=== PATIENT | female | born 1990 | race Caucasian/White ===

== ENCOUNTER → 2016-05-02 | Outpatient (CLI) | payer BC | END | disposition home or self-care (01) | LOC: C.LAB 09:16 | PROVIDERS: ATTEND Obstetrics & Gynecology | DX: N97.9 Female infertility, unspecified (principal) ==

== ENCOUNTER → 2016-07-08 | Outpatient (CLI) | payer BC ==
[2016-07-08 10:20] LABS: MEAN CELL VOLUME 89.3 fL (80-100); MEAN CORPUSCULAR HGB CONC 34.8 g/dl (32-36); MEAN PLATELET VOLUME 9.3 fL (7.4-10.4); PLATELET COUNT 238 K/uL (130-400); RED BLOOD COUNT 4.48 M/uL (4.2-5.4); WHITE BLOOD COUNT 4.87 K/uL (4.8-10.8)
[2016-07-08 11:12] LABS: RUBELLA SCREEN IgG (AT CCH) IMMUNE (IMMUNE)
--- NOTE | 2016-07-14 10:23 | CODING QUERY MEDICAL NECESSITY ---
SUPPORTING DIAGNOSIS NEEDED A supporting diagnosis is required for the test/procedure performed on this patient in order for us to be reimbursed by the patient's insurance. Please provide a supporting diagnosis for the following test/procedure listed below next to the test name along with your signature. *If there is no additional diagnosis for this patient that would support the following test/procedure please document that below next to the test/procedure. Test(s)/Procedure(s) that require a supporting diagnosis: * VITAMIN D 25-HYDROXY DIAGNOSIS: * DOS: 07/08/16 Provider Signature: Date: Thank you Alfreda Anderson Health Information Management Once completed, please kindly fax back to [phone] For questions please call [phone]
== END | disposition home or self-care (01) ==
LOC: C.LAB1850 09:38
PROVIDERS: ATTEND Specialist
DX: Z31.41 Encounter for fertility testing (principal); Z11.59 Encounter for screening for other viral diseases; Z11.3 Encounter for screening for infections with a predominantly sexual mode of transmission; Z11.4 Encounter for screening for human immunodeficiency virus [HIV]; Z13.0 Encounter for screening for diseases of the blood and blood-forming organs and certain disorders involving the immune mechanism; Z13.21 Encounter for screening for nutritional disorder

== ENCOUNTER → 2016-07-24 | Outpatient (CLI) | payer BC | END | disposition home or self-care (01) | LOC: C.LAB1850 16:07 | PROVIDERS: ATTEND Specialist | DX: Z01.83 Encounter for blood typing (principal) ==

== ENCOUNTER → 2016-08-18 | Outpatient (CLI) | payer BC | END | disposition home or self-care (01) | LOC: C.LAB1850 07:32 | PROVIDERS: ATTEND Specialist | DX: Z31.41 Encounter for fertility testing (principal) ==

== ENCOUNTER → 2016-08-25 | Outpatient (CLI) | payer BC | END | disposition home or self-care (01) | LOC: C.LAB1850 09:30 | PROVIDERS: ATTEND Specialist | DX: Z31.41 Encounter for fertility testing (principal) ==

== ENCOUNTER → 2016-08-27 | Outpatient (CLI) | payer BC | END | disposition home or self-care (01) | LOC: C.LAB1850 13:17 | PROVIDERS: ATTEND Specialist | DX: Z31.41 Encounter for fertility testing (principal) ==

== ENCOUNTER → 2016-08-28 | Outpatient (CLI) | payer BC | END | disposition home or self-care (01) | LOC: C.LAB1850 10:25 | PROVIDERS: ATTEND Specialist | DX: Z31.41 Encounter for fertility testing (principal) ==

== ENCOUNTER → 2016-08-29 | Outpatient (CLI) | payer BC ==
--- NOTE | 2016-10-17 07:55 | CODING QUERY NO DIAGNOSIS ---
TREATMENT RENDERED WITHOUT A DIAGNOSIS To promote full compliance with coding requirements relating to patient care, physician participation is requested in all cases of medical biller coder uncertainty. Please assist us with providing a diagnosis/symptom for the test(s) below: A diagnosis/symptom was not documented on your Order. A valid diagnosis/symptom is required to bill all insurances. Please remember that we are unable to code a diagnosis of rule out, probable, possible, questionable, or suspected. Tests that require a diagnosis: DOS: 08/29/16 * ESTRADIOL, ENHANCHED DIAGNOSIS: * PROGESTERONE DIAGNOSIS: Provider Signature: Date: Thank you Sruthi Whatley [facility] Information Management Once completed, please kindly fax back to [phone] For questions please call [phone]
== END | disposition home or self-care (01) ==
LOC: C.LAB1850 07:32
PROVIDERS: ATTEND Specialist
DX: Z31.41 Encounter for fertility testing (principal)

== ENCOUNTER → 2016-08-31 | Outpatient (CLI) | payer BC | END | disposition home or self-care (01) | LOC: C.LAB 07:32 | PROVIDERS: ATTEND Specialist | DX: N97.0 Female infertility associated with anovulation (principal) ==

== ENCOUNTER → 2016-09-19 | Outpatient (CLI) | payer BC | END | disposition home or self-care (01) | LOC: C.LAB1850 07:00 | PROVIDERS: ATTEND Specialist | DX: O09.00 Supervision of pregnancy with history of infertility, unspecified trimester (principal) ==

== ENCOUNTER → 2016-09-22 | Outpatient (CLI) | payer BC | END | disposition home or self-care (01) | LOC: C.LAB1850 07:16 | PROVIDERS: ATTEND Specialist | DX: O09.00 Supervision of pregnancy with history of infertility, unspecified trimester (principal) ==

== ENCOUNTER → 2016-09-24 | Outpatient (CLI) | payer BC | END | disposition home or self-care (01) | LOC: C.LAB1850 07:21 | PROVIDERS: ATTEND Specialist | DX: O09.00 Supervision of pregnancy with history of infertility, unspecified trimester (principal) ==

== ENCOUNTER → 2016-09-25 | Outpatient (CLI) | payer BC | END | disposition home or self-care (01) | LOC: C.LAB1850 11:00 | PROVIDERS: ATTEND Specialist | DX: O09.00 Supervision of pregnancy with history of infertility, unspecified trimester (principal); Z3A.00 Weeks of gestation of pregnancy not specified ==

== ENCOUNTER → 2016-10-16 | Outpatient (CLI) | payer BC | END | disposition home or self-care (01) | LOC: C.LAB1850 07:22 | PROVIDERS: ATTEND Specialist | DX: O09.00 Supervision of pregnancy with history of infertility, unspecified trimester (principal); Z3A.00 Weeks of gestation of pregnancy not specified ==

== ENCOUNTER → 2016-10-23 | Outpatient (CLI) | payer BC | END | disposition home or self-care (01) | LOC: C.LAB1850 07:34 | PROVIDERS: ATTEND Specialist | DX: O09.00 Supervision of pregnancy with history of infertility, unspecified trimester (principal); Z3A.00 Weeks of gestation of pregnancy not specified ==

== ENCOUNTER → 2016-10-30 | Outpatient (CLI) | payer BC | END | disposition home or self-care (01) | LOC: C.LAB1850 07:34 | PROVIDERS: ATTEND Specialist | DX: O09.00 Supervision of pregnancy with history of infertility, unspecified trimester (principal) ==

== ENCOUNTER → 2016-11-06 | Outpatient (CLI) | payer BC | END | disposition home or self-care (01) | LOC: C.LAB1850 07:18 | PROVIDERS: ATTEND Specialist | DX: Z32.00 Encounter for pregnancy test, result unknown (principal) ==

== ENCOUNTER → 2016-11-14 | Outpatient (CLI) | payer BC | END | disposition home or self-care (01) | LOC: C.LAB1850 07:07 | PROVIDERS: ATTEND Specialist | DX: Z32.00 Encounter for pregnancy test, result unknown (principal) ==

== ENCOUNTER → 2016-11-17 | Outpatient (CLI) | payer BC | END | disposition home or self-care (01) | LOC: C.LAB1850 07:31 | PROVIDERS: ATTEND Specialist | DX: Z32.00 Encounter for pregnancy test, result unknown (principal) ==

== ENCOUNTER → 2017-01-06 | Outpatient (CLI) | payer BC | END | disposition home or self-care (01) | LOC: C.LAB1850 07:28 | PROVIDERS: ATTEND Specialist | DX: O09.00 Supervision of pregnancy with history of infertility, unspecified trimester (principal) ==

== ENCOUNTER → 2017-01-08 | Outpatient (CLI) | payer BC | END | disposition home or self-care (01) | LOC: C.LAB1850 07:46 | PROVIDERS: ATTEND Specialist | DX: O09.00 Supervision of pregnancy with history of infertility, unspecified trimester (principal); Z3A.00 Weeks of gestation of pregnancy not specified ==

== ENCOUNTER → 2017-01-14 | Outpatient (CLI) | payer BC | END | disposition home or self-care (01) | LOC: C.LAB1850 14:14 | PROVIDERS: ATTEND Obstetrics & Gynecology | DX: O20.0 Threatened abortion (principal) ==

== ENCOUNTER → 2017-02-18 | Outpatient (CLI) | payer BC ==
[2017-02-18 16:09] LABS: URINE APPEARANCE CLEAR (CLEAR); URINE BILIRUBIN NEG (NEG); URINE COLOR YELLOW; URINE NITRITE NEG (NEG); URINE SPECIFIC GRAVITY 1.017 (1.000-1.030); UROBILINOGEN NEG (NEG)
[2017-02-18 16:24] LABS: MANUAL MICROSCOPIC REQUIRED? NO; REVIEW REQ? NO
== END | disposition home or self-care (01) ==
LOC: C.LABSPEC 15:51
PROVIDERS: ATTEND Obstetrics & Gynecology
DX: O09.819 Supervision of pregnancy resulting from assisted reproductive technology, unspecified trimester (principal); Z3A.00 Weeks of gestation of pregnancy not specified

== ENCOUNTER → 2017-02-20 | Outpatient (CLI) | payer BC ==
[2017-02-24 02:18] LABS: CHLAMYDIA TRACH RNA*** NOT DETECTED (NOT DETECTED); GC (NEIS GONORRHOEAE)RNA** NOT DETECTED (NOT DETECTED)
== END | disposition home or self-care (01) ==
LOC: C.LABSPEC 17:33
PROVIDERS: ATTEND Obstetrics & Gynecology
DX: O09.819 Supervision of pregnancy resulting from assisted reproductive technology, unspecified trimester (principal); Z3A.00 Weeks of gestation of pregnancy not specified

== ENCOUNTER → 2017-02-23 | Outpatient (CLI) | payer BC ==
[2017-02-23 10:18] LABS: BASO % 0.2 %; BASO ABS # 0.02 K/uL (0-0.2); COMPLETE YES; EOS % 2.4 %; HEMATOCRIT 37.8 % (37-47); IG% 0.5 %; LYMPH % 16.2 %; LYMPH ABS # 1.56 K/uL (1.2-3.4); MEAN CELL VOLUME 91.3 fL (80-100); MEAN CORPUSCULAR HEMOGLOBIN 32.1 pg (25-34); MEAN CORPUSCULAR HGB CONC 35.2 g/dl (32-36); MEAN PLATELET VOLUME 9.4 fL (7.4-10.4); NEUT % 73.7 %; PLATELET COUNT 255 K/uL (130-400); RED BLOOD COUNT 4.14 M/uL (4.2-5.4); WHITE BLOOD COUNT 9.64 K/uL (4.8-10.8)
== END | disposition home or self-care (01) ==
LOC: C.LAB1850 07:33
PROVIDERS: ATTEND Obstetrics & Gynecology
DX: O09.819 Supervision of pregnancy resulting from assisted reproductive technology, unspecified trimester (principal)

== ENCOUNTER → 2017-03-31 | Outpatient (CLI) | payer BC ==
[2017-03-31 10:11] LABS: GTGD 50 Grams
== END | disposition home or self-care (01) ==
LOC: C.LAB1850 07:34
PROVIDERS: ATTEND Obstetrics & Gynecology
DX: O09.812 Supervision of pregnancy resulting from assisted reproductive technology, second trimester (principal); Z3A.00 Weeks of gestation of pregnancy not specified

== ENCOUNTER → 2017-06-19 | Outpatient (CLI) | payer BC ==
[2017-06-19 10:05] LABS: HEMATOCRIT 34.2 % (37-47); HEMOGLOBIN 11.8 g/dL (12.0-16.0)
== END | disposition home or self-care (01) ==
LOC: C.LAB1850 07:38
PROVIDERS: ATTEND Obstetrics & Gynecology
DX: O09.813 Supervision of pregnancy resulting from assisted reproductive technology, third trimester (principal)

== ENCOUNTER → 2017-08-14 | Outpatient (CLI) | payer BC | END | disposition home or self-care (01) | LOC: C.LABSPEC 15:40 | PROVIDERS: ATTEND Obstetrics & Gynecology | DX: O09.813 Supervision of pregnancy resulting from assisted reproductive technology, third trimester (principal) ==

== ENCOUNTER → 2017-08-20 | Outpatient (CLI) | payer BC ==
[~2017-08-20] MED LIST: PREN-63; ZNT/150 PO
== END | disposition home or self-care (01) ==
LOC: C.LAB1850 10:10
PROVIDERS: ATTEND Obstetrics & Gynecology
DX: Z29.13 Encounter for prophylactic Rho(D) immune globulin (principal)

== ENCOUNTER 2019-02-16 05:29 | Inpatient (IN) ==
--- NOTE | 2019-02-14 14:42 | PAT Medication Instructions ---
Medication Instructions Date of Service February 14, 2019 Home Medications aspirin [Aspir-81] 81 mg PO DAILY cholecalciferol (vitamin D3) 1,000 unit PO DAILY docusate sodium [Colace] 100 mg PO DAILY PRN vit-iron fum-folic ac [ Vitamin] 1 tab PO DAILY ranitidine HCl [Zantac 75] 75 mg PO BID ASK your prescriber and surgeon aspirin [Aspir-81] 81 mg PO DAILY DO NOT take the morning of surgery cholecalciferol (vitamin D3) 1,000 unit PO DAILY docusate sodium [Colace] 100 mg PO DAILY PRN vit-iron fum-folic ac [ Vitamin] 1 tab PO DAILY ranitidine HCl [Zantac 75] 75 mg PO BID Other Notes If you have any questions please call us at [phone] or [phone] or [phone] or [phone]
--- NOTE | 2019-02-15 14:15 | History & Physical Report ---
Date of Service February 15, 2019 planned Twin C/S at 37+6 ICSI/IVF tomorrow Assessment & Plan (1) Twin : Repeat section. The patient was counseled to the nature of the procedure including alternatives such as labor. Risks were discussed including bleeding infection injury to bowel bladder ureter vessels and even baby. The risks of internal organ injury were discussed as being higher with prior sections. Deep Vein Thrombosis, pulmonary embolus and breakdown of the incision discussed. Deep vein thrombosis pulmonary embolus hernia and failure of the incision to heal were discussed Patient verbalized understanding of this and was given ample time to ask quest ions History of Present Illness Primary Care Provider: NO PCP Allergies Allergy/AdvReac Type Severity Reaction Status Date / Time Penicillins AdvReac Intermediate HIVES Verified 02/15/19 13:44 Home Medications Home Medications Medication Instructions Recorded Confirmed Type aspirin [Aspir-81] 81 mg PO DAILY 02/07/19 02/15/19 History cholecalciferol (vitamin D3) 1,000 unit PO DAILY 02/07/19 02/15/19 History docusate sodium [Colace] 100 mg PO DAILY PRN 02/07/19 02/15/19 History vit-iron fum-folic ac 1 tab PO DAILY 02/07/19 02/15/19 History [ Vitamin] ranitidine HCl [Zantac 75] 75 mg PO BID 02/07/19 02/15/19 History Patient History Social History Preferred Language: [place] Communication Ability: Effective 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 Beliefs That Will Affect Care: None marital status: Current Living Situation: Family Current Living Situation Comment: Lives at home with , daughter, and a small dog Feels Safe at Home: Yes Smoking Status: Never smoker Hx Alcohol Use: No Hx Substance Use: No Physical Exam Constitutional: WD/WN, vitals as above Respiratory: normal respiratory effort, lungs clear to auscultation Cardiovascular: RRR, no murmur, no edema Gastrointestinal (Abdomen): normal bowel sounds, soft, nontender, no hepatosplenomegaly Genitourinary: OB Exam Abdomen: + fundal height (Twins) and + heart tones (By U/S) OB Exam Monitor Tracing: + external FHT monitor used
--- NOTE | 2019-02-15 14:31 | Anesthesiology Consultation ---
Date of Service February 15, 2019 Assessment & Plan (1) Encounter for pre-operative examination: - No PAT labs: per OB, no preop labs to be drawn at PAT. - Twin : Per OB office, patient on [id number] with for "twin protocol." ASA instructions per OB. Chart Review Chart Review: Acceptable Risk for Surgery (pending preop labs AM DOS) and Patient seen in Pre Admission Testing Teaching & Discussion Pre-Anesthesia Teaching/Discussion Notes: Instructed NPO after midnight before surgery,except medications with 15 cc of water. Medication instructions provided according to the [facility] guidelines. History Surgery Operation Date: 02/16/19 07:30 Proposed Procedures p Section in LD - J. Odilon Pacheco MD, FACOG Height/Weight Height: 5 ft 3 in Weight: 77.5 kg Allergies Allergy/AdvReac Type Severity Reaction Status Date / Time Penicillins AdvReac Intermediate HIVES Verified 02/16/19 05:49 Medications Home Medications Medication Instructions Recorded Confirmed Last Taken aspirin [Aspir-81] 81 mg PO DAILY 02/07/19 02/16/19 02/15/19 21:00 cholecalciferol (vitamin D3) 1,000 unit PO DAILY 02/07/19 02/15/19 02/09/19 docusate sodium [Colace] 100 mg PO DAILY PRN 02/07/19 02/16/19 02/15/19 21:00 vit-iron fum-folic ac 1 tab PO DAILY 02/07/19 02/16/19 02/15/19 21:00 [ Vitamin] famotidine [Pepcid] 20 mg PO DAILY 02/16/19 02/16/19 02/15/19 21:00 Past Medical History Medical History In vitro fertilization with current twin No significant past medical history Exercise / Class Metabolic Activity III < 4 Walking/Shop/Light housework Past Family History Family History Grandmother (Maternal) Diabetes Grandfather (Maternal) Diabetes Past Surgical History Surgical History H/O arthroscopy of knee 2008 S/P section Primary c/s (breech): 08/2017: SAB x 1 at L3-L4 at [facility] (good perioperative pain control) S/P wisdom tooth extraction Status post hysteroscopy 11/2016 Past Anesthesia History No Hx of Anesthesia Complications and No Family Hx of Anesthesia Complications History of PONV No Hx of PONV and No Hx of Motion Sickness Social History Smoking Status: Never smoker Do You Dip or Chew Tobacco: No Hx Alcohol Use: No Hx Substance Use: No substance use type: does not use Review of Systems related reflux. Patient denies chest pain, shortness of breath, cough, wheezing, palpitations. Physical Exam Vital Signs Last Vital Signs Temp 36.9 C 02/16/19 05:58 Pulse 85 02/16/19 06:57 Resp 18 02/16/19 05:58 BP 134/78 02/16/19 06:57 VITALS BP 109/67 P 99 TEMP 98.3 SP02 97%RA RESP 18 PHYSICAL Full neck and c-spine range of motion. Full TMJ range of motion. TMD 3 finger breaths Mallampati Score 2 Dentition: intact, removable retainers upper/lower Lungs: clear throughout to auscultation Cardiac: regular rate and rhythm, no murmurs noted Spine: normal Extremities: no edema Testing Laboratory Results 02/16/19 05:40 12/09/18 H/H 11.2/33.1 T&S Antibody negative 08/11/18 Blood type O-
[2019-02-16] MEDS ORDERED: CEFAZOLIN 2000MG 2,000 MG/15 ML SYR IV STA (05:38)
[2019-02-16] MEDS ORDERED: CITRIC ACID/SODIUM CITRATE 15 ML UDC PO STA (05:39)
[2019-02-16] MEDS ORDERED: LACTATED RINGER'S 1,000 ML IV SCH ×3 (05:45→10:29)
[2019-02-16 06:16] LABS: Basophils # (auto) 0.03 K/uL (0-0.2); Basophils % (auto) 0.3 %; Hematocrit (blood only) 35.8 % (37-47); Immature Granulocytes # (auto) 0.15 K/uL (0.00-0.02); Immature Granulocytes % (auto) 1.5 %; Lymphocytes # (auto) 2.36 K/uL (1.2-3.4); Lymphocytes % (auto) 24.1 %; Mean Corpuscular Hemoglobin 31.3 pg (25-34); Mean Corpuscular Volume 93.5 fL (80-100); Mean Platelet Volume 9.5 fL (7.4-10.4); Monocytes # (auto) 1.06 K/uL (0.11-0.59); Monocytes % (auto) 10.8 %; Neutrophils # (auto) 5.98 K/uL (1.4-6.5); Neutrophils % (auto) 61.3 %; Platelet Count 171 K/uL (130-400); RDW Coefficient of Variation 14.2 % (11.5-14.5); RDW Standard Deviation 47.8 fL (36.4-46.3); Red Blood Count 3.83 M/uL (4.2-5.4); White Blood Count 9.78 K/uL (4.8-10.8)
[2019-02-16 06:22] LABS: Mean Corpuscular Hgb Conc 33.5 g/dL (32-36)
--- NOTE | 2019-02-16 07:06 | History & Physical Bridge Note ---
Date of Service February 16, 2019 History & Physical Bridge Note I have examined the patient, reviewed the History & Physical and in the interval since the performance of the History & Physical I have noted the following changes of clinical significance: no changes noted
[2019-02-16] MEDS ORDERED: MoRPHine SULFATE PF 1 MG/ML 10 ML AMP/VIAL ONE (07:14)
[2019-02-16] MEDS ORDERED: NALBUPHINE HCL INJ 10 MG/ML AMP IV PRN (07:31)
[2019-02-16] MEDS ORDERED: NALOXONE HCL 1 MG in SODIUM CHLORIDE 0.9% 1000ML 1,000 ML IV PRN (07:31)
[2019-02-16] MEDS ORDERED: NALOXONE HCL 0.08 MG in SYRINGE 1.8 ML IV PRN (07:31)
[2019-02-16] MEDS ORDERED: ePHEDrine sulfate 50 MG/ML AMP IV PRN (07:31)
[2019-02-16] MEDS ORDERED: ONDANSETRON INJ 2 MG/ML 2 ML VIAL IV PRN (07:31)
[2019-02-16] MEDS ORDERED: LACTATED RINGER'S 500 ML IV PRN (07:31)
[2019-02-16] MEDS ORDERED: MoRPHine SULFATE PF 1 MG/ML 10 ML AMP/VIAL INT SPINAL SCH (07:31)
[2019-02-16] MEDS ORDERED: DiphenhydrAMINE HCL 50 MG/ML VIAL IV PRN (07:31)
[2019-02-16] MEDS ORDERED: PROMETHAZINE HCL 12.5 MG in SODIUM CHLORIDE 0.9% 50 ML IV PRN (07:31)
[2019-02-16] MEDS ORDERED: MEPERIDINE HCL 25 MG/ML CARP IV PRN (07:31)
[2019-02-16] MEDS ORDERED: NALOXONE HCL 0.4 MG/1 ML VIAL/CARP IV PRN (07:31)
[2019-02-16] MEDS ORDERED: SODIUM CHLORIDE 0.9% 1000ML 1,000 ML IV SCH (07:45)
[2019-02-16] MEDS ORDERED: NO NARCOTICS OR SEDATIVES SCH (07:45)
[2019-02-16] MEDS ORDERED: SUCCINYLCHOLINE CHLORIDE 20 MG/ML 10 ML VIAL ONE (08:29)
[2019-02-16] MEDS ORDERED: METOCLOPRAMIDE HCL INJ 5 MG/ML 2 ML VIAL ONE (08:29)
[2019-02-16] MEDS ORDERED: ONDANSETRON INJ 2 MG/ML 2 ML VIAL ONE (08:29)
[2019-02-16] MEDS ORDERED: PROPOFOL IV EMULSION 10 MG/ML 20 ML VIAL IV ONE (08:29)
[2019-02-16] MEDS ORDERED: ePHEDrine sulfate 50 MG/ML SYR ONE (08:29)
[2019-02-16] MEDS ORDERED: OXYTOCIN 10 UNITS/ML VIAL ONE (08:29)
[2019-02-16] MEDS ORDERED: PHENYLEPHRINE 100MCG/ML 5ML SYR ONE (08:29)
--- NOTE | 2019-02-16 08:37 | Operative Report ---
PG Post Operative Report Pre & Post Diagnosis Operation Date: 02/16/19 07:30 <No data on this case meets the specified criteria> I identified the patient and participated in the time-out.: Yes Procedure Operation Date: 02/16/19 07:30 <No data on this case meets the specified criteria> Surgeon Akira Pacheco MD, FACOG Net Trainer Dr. Wellington Estimated Blood Loss 400 Findings Consistent with Post-Op Diagnosis Specimens Cord blood x2 placenta x2 cord gases x2 Description of Procedure Patient given a spinal anesthetic Louise catheter placed by nursing IV Ancef given to the patient she was prepped and draped in supine position with a leftward tilt pickups with teeth were used to assess the incision area and found to be adequate scalpel used to make a Pfannenstiel incision over the previous Pfannenstiel cutting down through the fat layer through the fascia in the midline fascia then cut laterally with the curved Garcia scissors fascia released superiorly and and and inferiorly from the rectus muscles with the curved Garcia scissors. Rectus muscle split peritoneal cavity entered in a superior location opening then enlarged to allow exposure bladder retractor placed Metzenbaums used to dissect the bladder flap away and then scalpel used to make a low transverse incision on the uterus. Entry was done bluntly into the uterus with the hydraulic strainer operator's finger and then incision and the uterus extended in the usual fashion with the hydraulic strainer operator's finger baby was in vertex position membranes were ruptured with clear fluid delivered by flexion of the head and pressure from the insurance legal assistant no excessive force used live vigorous male cord clamped and cut cord gases obtained cord blood obtained. We then palpated the second twin which was in breech position membranes were intact brought the breech portion down into the pelvis and then ruptured membranes for clear fluid baby was delivered in breech position by bringing the back anterior and then gentle traction and pressure with the insurance legal assistant legs were both then delivered and then arms were swept towards the chest to deliver them head was delivered without excessive extension live vigorous female infant cord clamped and cut cord gases obtained cord blood obtained 2 separate placentas were then removed from the uterus IV Pitocin started uterus was exteriorized we ensured all membranes and placenta were removed. Adnexa appeared normal Uterus was closed in usual fashion a running 0 Monocryl locked and a second 0 Monocryl nonlocked after generous irrigation and suction of the cul-de-sac and bladder flap regions uterus placed back in the peritoneal cavity on inspection hemostasis was excellent. Rectus muscles reapproximated with 0 Vicryl fascia closed with 0 Vicryl subcu fat was closed with 3-0 Vicryl after being irrigated 4 oh septic or Monocryl closure Steri-Strips applied urine was clear at the end of procedure sponge and counts correct I attest to the content of the Intraoperative Record and any orders documented therein. Any exceptions are noted below.
[2019-02-16 09:37] LABS: Base Excess Cord Arterial Bld -2.7 mEq/L (-9-1.8); CO2 Cord Arterial Blood 50 mmHg (39.1-73.5); HCO3 Cord Arterial Blood 24 mmol/L (19.7-28.5); Oxygen Sat Cord Arterial Blood < 60.0 % (<60)
[2019-02-16 09:42] LABS: Cord Venous Blood HCO3 24 mmol/L (18.4-26.8); Cord Venous Blood PCO2 46 mmHg (30.4-57.2); Cord Venous Blood PO2 22 mmHg (14.1-43.3); O2 Saturation Cord Venous Bld < 60.0 % (<68)
[2019-02-16 09:43] LABS: Cord Venous Blood pH 7.34 (7.20-7.44)
[2019-02-16 09:48] LABS: Base Excess Cord Arterial Bld -5.2 mEq/L (-9-1.8); CO2 Cord Arterial Blood 59 mmHg (39.1-73.5); HCO3 Cord Arterial Blood 24 mmol/L (19.7-28.5)
[2019-02-16 09:49] LABS: Oxygen Sat Cord Arterial Blood < 60.0 % (<60)
[2019-02-16 09:54] LABS: Base Excess Cord Venous Blood -4.5 mEq/L (-7.7-1.9); Cord Venous Blood HCO3 22 mmol/L (18.4-26.8); Cord Venous Blood PCO2 46 mmHg (30.4-57.2); Cord Venous Blood PO2 21 mmHg (14.1-43.3); O2 Saturation Cord Venous Bld < 60.0 % (<68)
[2019-02-16 09:57] LABS: pH Cord Arterial Blood 7.22 (7.1-7.38)
[2019-02-16] MEDS ORDERED: MAGNESIUM HYDROXIDE SUSP 30 ML UDC PO PRN (10:29)
[2019-02-16] MEDS ORDERED: SUPERCREAM 0.870% 15 GM JAR EXT PRN (10:29)
[2019-02-16] MEDS ORDERED: DOCUSATE SODIUM 100 MG CAP PO PRN (10:29)
[2019-02-16] MEDS ORDERED: DIPHTHERIA/TETANUS/PERTUSSIS 0.5 ML SYR/VIAL IM ONE (10:29)
[2019-02-16] MEDS ORDERED: BENZOCAINE 20% AER SPR 82.5 GM CAN EXT PRN (10:29)
[2019-02-16] MEDS ORDERED: SENNA 8.6 MG TAB PO PRN (10:29)
[2019-02-16] MEDS ORDERED: NON-FORMULARY MEDICATION (Prenatal Vit-Iron Fum-Folic Ac [Prenatal Vitamin] 1 TAB) PO SCH (10:29)
[2019-02-16] MEDS ORDERED: HYDROCORTISONE ACETATE 25 MG SUPP PR PRN (10:29)
[2019-02-16] MEDS: OXYTOCIN 20 UNITS in LACTATED RINGER'S 1,000 ML IV SCH ×2 (11:02→18:49)
[2019-02-16] MEDS: FAMOTIDINE 20 MG TAB PO SCH (13:15)
[2019-02-16] MEDS: SIMETHICONE 80 MG CHEW PO SCH ×3 (13:26→20:35)
[2019-02-16] MEDS: KETOROLAC 30 MG/ML VIAL IV PRN (14:13)
--- NOTE | 2019-02-16 17:57 | Anesthesiology Progress Note ---
Date of Service February 16, 2019 Anesthesia Post Procedure Vital Signs Vital Signs: Temp Pulse Pulse Resp BP BP Pulse Ox 02/16/19 17:15 18 98 02/16/19 16:27 18 97 02/16/19 15:30 36.3 C L 77 18 109/61 96 02/16/19 14:00 16 97 02/16/19 13:10 18 98 02/16/19 12:00 36.3 C L 77 18 128/70 96 02/16/19 11:10 36.5 C 18 100 02/16/19 11:00 36.5 C 59 L 18 124/65 02/16/19 10:56 56 L 100 02/16/19 10:51 53 L 109/64 100 02/16/19 10:46 52 L 100 02/16/19 10:45 36.5 C 20 02/16/19 10:41 54 L 100 02/16/19 10:40 57 L 118/65 02/16/19 10:36 52 L 100 02/16/19 10:31 55 L 99 02/16/19 10:30 56 L 123/73 02/16/19 10:26 64 100 02/16/19 10:21 65 98 02/16/19 10:20 57 L 123/69 02/16/19 10:16 57 L 98 02/16/19 10:11 60 98 02/16/19 10:10 56 L 118/64 02/16/19 10:06 67 99 02/16/19 10:01 59 L 122/61 98 02/16/19 09:56 63 98 02/16/19 09:51 58 L 97 02/16/19 09:50 56 L 137/69 02/16/19 09:46 66 97 02/16/19 09:41 68 98 02/16/19 09:40 65 136/73 02/16/19 09:36 65 97 02/16/19 09:35 16 02/16/19 09:31 64 98 02/16/19 09:30 60 128/64 02/16/19 09:26 71 98 02/16/19 09:25 63 16 98 02/16/19 09:21 63 98 02/16/19 09:20 61 127/64 02/16/19 09:16 56 L 98 02/16/19 09:15 18 02/16/19 09:11 65 128/63 99 02/16/19 09:06 58 L 97 02/16/19 09:05 16 02/16/19 09:01 65 133/63 99 02/16/19 08:56 62 100 02/16/19 08:55 18 02/16/19 08:51 63 108/65 99 02/16/19 08:46 61 99 02/16/19 08:45 36.5 C 16 02/16/19 08:41 63 127/60 96 02/16/19 07:00 36.8 C 20 02/16/19 06:57 85 134/78 02/16/19 05:58 36.9 C 80 18 119/73 02/16/19 05:53 36.9 C 80 18 119/73 Transfer of Care Handoff Completed per policy Notes Mental Status: alert / awake / arousable Patient Amnestic to Procedure: Yes Nausea / Vomiting: adequately controlled Pain: adequately controlled Airway Patency, RR, SpO2: stable & adequate BP & HR: stable & adequate Hydration State: stable & adequate Neuraxial Anesthesia: was administered and sensory block is resolving Anesthetic Complications: no major complications apparent
[2019-02-16] MEDS: DOCUSATE SODIUM 100 MG CAP PO SCH (20:35)
[2019-02-17] MEDS: KETOROLAC 30 MG/ML VIAL IV PRN (01:21)
[2019-02-17] MEDS ORDERED: DC INTRASPINAL MORPHINE SCH (01:31)
[2019-02-17] MEDS ORDERED: PROMETHAZINE HCL 25 MG in SODIUM CHLORIDE 0.9% 50 ML IV PRN (01:31)
[2019-02-17] MEDS ORDERED: OXYCODONE/ACETAMINOPHEN 5mg/325mg TAB PO PRN (01:31)
[2019-02-17] MEDS ORDERED: DiphenhydrAMINE HCL 50 MG/ML VIAL IV PRN (01:31)
[2019-02-17] MEDS ORDERED: KETOROLAC 30 MG/ML VIAL IV PRN (01:31)
[2019-02-17] MEDS ORDERED: MEPERIDINE HCL 50 MG/ML CARP IV PRN (01:31)
[2019-02-17] MEDS ORDERED: ONDANSETRON INJ 2 MG/ML 2 ML VIAL IV PRN (01:31)
--- NOTE | 2019-02-17 06:36 | Obstetrical Progress Note ---
Date of Service <Narciso Martinez DO - Last Filed: 02/17/19 06:42> February 17, 2019 Assessment & Plan <Narciso ArguellesDO milton - Last Filed: 02/17/19 06:42> (1) Twin : -POD#1 -Vitals reviewed, WNL (Tmax 36.7) - GBS -, Blood Type O- - Received Rhogram 12/09/18 - Clinically stable. - Feels well today. Voiding well, ambulating well. Nausea and vomiting improved this AM. - Pain well controlled. - Routine post care - After discharge will have [address] Junior Resendez #:: 1 Subjective <Narciso Martinez DO - Last Filed: 02/17/19 06:42> Ambulation: ambulating normally Voiding: no voiding problems Passing Gas:: Yes Diet Tolerance:: nausea/vomiting (primarily yesterday while on clears. ) Lochia:: Moderate Feeding Type:: breast feeding Current Pain Level(1-10): 3 (improves with analgesics) Patient is a 28 POD#1. Patient states that she is doing well this morning and that her pain is well controlled. She has no complaints at this point in time. Notes that the male infant is feeding well, however, the female requires more coaxing. Constitutional: no fever and no chills Respiratory: no cough, no dyspnea and no wheezing Cardiovascular: no chest pain, no dyspnea, no dyspnea on exertion, no edema and no calf pain Breast: no breast pain Gastrointestinal: + nausea (improving ) and + vomiting (primarily yesterday evening); no abdominal pain Genitourinary (female): no dysuria Neurologic: no headache(s) Physical Exam <Narciso Martinez DO - Last Filed: 02/17/19 06:42> Constitutional WD/WN, vitals as above Respiratory normal respiratory effort, lungs clear to auscultation Cardiovascular Rate/Rhythm: regular rate and regular rhythm Heart Sounds: normal S1 and normal S2; no click, no gallop, no murmur and no cardiac rub Extremities: no calf tenderness and no edema Gastrointestinal (Abdomen) Inspection/Auscultation: abdomen normal to inspection, normal bowel sounds and + abdominal surgical incision (Dressing Clean and Dry) Percussion/Palpation: + abdomen tender (TTP throughout, worse in lower quads, appropriate) and abdomen soft Genitourinary OB Exam Abdomen: + fundal height Fundus: + firm and + relation to umbilicus (1cm below); not tender and not boggy Results & Data <Narciso Martinez DO - Last Filed: 02/17/19 06:42> Vital Signs (Past 12 Hours) Vital Signs Temp Pulse Resp BP Pulse Ox 02/17/19 04:25 36.7 C 77 18 117/75 98 02/17/19 01:20 18 100 02/17/19 00:10 16 97 02/16/19 23:35 36.4 C L 77 18 103/59 L 100 02/16/19 23:10 18 100 02/16/19 22:30 18 97 02/16/19 21:15 18 97 02/16/19 20:20 36.4 C L 77 18 108/66 97 02/16/19 20:10 18 97 02/16/19 19:10 18 98 Medications Administered Current Inpatient Medications Benzocaine (Dermoplast Pain Relieving [place]) 1 appln EXT UD PRN PRN Reason: use on skin as needed Stop: 03/18/19 10:28 Bisacodyl (Dulcolax) 5 mg PO 1999 [facility] Stop: 02/17/19 20:01 Bisacodyl (Dulcolax) 10 mg [place] PRN PRN PRN Reason: Constipation Stop: 03/20/19 08:29 Cocaine HCl (Supercream 0.870%) 1 gm EXT UD PRN PRN Reason: hemmorrhoidal inflammation Stop: 03/02/19 10:28 Diphenhydramine HCl (Benadryl Capsule) 25 mg PO QID PRN PRN Reason: Itching Stop: 03/18/19 10:28 Diphenhydramine HCl (Benadryl) 25 mg IV QID PRN PRN Reason: Itching Stop: 03/19/19 01:30 Docusate Sodium (Colace) 100 mg PO DAILY@, [facility] Stop: 03/18/19 20:59 Last Admin: 02/16/19 20:35 Dose: 100 mg Documented by: Docusate Sodium (Colace) 100 mg PO DAILY PRN PRN Reason: Constipation Stop: 03/18/19 10:28 Famotidine (Pepcid) 20 mg PO DAILY [facility] Stop: 03/18/19 10:28 Last Admin: 02/16/19 13:15 Dose: Not Given Documented by: Ferrous Sulfate (Feosol) 325 mg PO DAILY@08 [facility] Stop: 03/19/19 07:59 Hydrocortisone (Anusol Hc) 25 mg [place] BID PRN PRN Reason: Hemorrhoids Stop: 03/18/19 10:28 Lactated Ringer's (Lr) 1,000 mls @ 125 mls/hr IV .Q8H KIERAN Stop: 03/18/19 06:31 Lactated Ringer's (Lr) 1,000 mls @ 125 mls/hr IV .Q8H [facility] Stop: 03/18/19 10:28 Promethazine HCl 25 mg/ Sodium (Chloride) 51 mls @ 204 mls/hr IV Q4H PRN PRN Reason: Nausea And Vomiting Stop: 03/19/19 01:30 Ibuprofen (Motrin) 600 mg PO Q4H PRN PRN Reason: Pain Stop: 03/19/19 01:30 Ketorolac Tromethamine (Toradol) 30 mg IV Q6H PRN PRN Reason: Pain Stop: 02/22/19 01:30 Magnesium Hydroxide (Milk Of Magnesia) 30 ml PO HS PRN PRN Reason: Constipation Stop: 03/18/19 10:28 Meperidine HCl (Demerol) 50 - 75 mg IV Q4H PRN PRN Reason: Pain Stop: 03/03/19 01:30 Ondansetron HCl (Zofran) 4 mg IV Q4H PRN PRN Reason: Nausea And Vomiting Stop: 03/19/19 01:30 Oxycodone/Acetaminophen (Percocet 5mg/325mg) 1 - 2 tab PO Q4H PRN PRN Reason: Pain Stop: 03/03/19 01:30 Prenat Multivit/Seward/Iron/Folic Ac ( Vitamin) 1 tab PO DAILY@08 [facility] Stop: 03/19/19 07:59 Sennosides (Senokot) 17.2 mg PO HS PRN PRN Reason: Constipation Stop: 03/18/19 10:28 Simethicone (Mylicon) 80 mg PO DAILY@08,13,17,21 [facility] Stop: 03/18/19 12:59 Last Admin: 02/16/19 20:35 Dose: 80 mg Documented by: Vitamin D (Vitamin D3) 1,000 units PO DAILY KIERAN Stop: 03/19/19 08:59 <Akira Pacheco MD, FACOG - Last Filed: 02/17/19 07:09> Co-Signing Physician Notes Resident Physician Supervision Note: I was present with [Michelle] during the history and exam. I discussed the case with the resident and agree with the findings and plan as documented in the note. Any exceptions or clarifications are listed here: [None] Documented By: Akira Pacheco MD, FACOG Resident Activity Tracking <Narciso Martinez DO - Last Filed: 02/17/19 06:42> Resident Involvement: Resident Care Provided Care Provided: OB Delivery
[2019-02-17 06:46] LABS: Basophils # (auto) 0.02 K/uL (0-0.2); Basophils % (auto) 0.2 %; Hematocrit (blood only) 33.5 % (37-47); Hemoglobin 11.1 g/dL (12.0-16.0); Immature Granulocytes # (auto) 0.08 K/uL (0.00-0.02); Immature Granulocytes % (auto) 0.8 %; Lymphocytes # (auto) 1.35 K/uL (1.2-3.4); Lymphocytes % (auto) 13.3 %; Mean Corpuscular Hemoglobin 31.4 pg (25-34); Mean Corpuscular Hgb Conc 33.1 g/dL (32-36); Mean Corpuscular Volume 94.6 fL (80-100); Mean Platelet Volume 9.3 fL (7.4-10.4); Monocytes # (auto) 0.86 K/uL (0.11-0.59); Monocytes % (auto) 8.5 %; Neutrophils # (auto) 7.71 K/uL (1.4-6.5); Neutrophils % (auto) 76.2 %; Platelet Count 135 K/uL (130-400); RDW Coefficient of Variation 14.1 % (11.5-14.5); RDW Standard Deviation 48.1 fL (36.4-46.3); Red Blood Count 3.54 M/uL (4.2-5.4); White Blood Count 10.12 K/uL (4.8-10.8)
[2019-02-17] MEDS: SIMETHICONE 80 MG CHEW PO SCH ×4 (08:06→21:12)
[2019-02-17] MEDS: DOCUSATE SODIUM 100 MG CAP PO SCH ×2 (08:06→21:12)
[2019-02-17] MEDS: PRENATAL VITAMIN 1 TAB PO SCH (08:07)
[2019-02-17] MEDS: FERROUS SULFATE 325 MG TAB PO SCH (08:07)
[2019-02-17] MEDS: FAMOTIDINE 20 MG TAB PO SCH (08:08)
[2019-02-17] MEDS ORDERED: CHOLECALCIFEROL 1,000 UNITS TAB PO SCH (09:00)
[2019-02-17] MEDS: IBUPROFEN 600 MG TAB PO PRN ×3 (13:18→21:13)
[2019-02-17] MEDS ORDERED: BISACODYL 5 MG TABEC PO SCH (20:00)
[2019-02-18] MEDS: IBUPROFEN 600 MG TAB PO PRN ×3 (02:44→10:23)
[2019-02-18 06:31] LABS: Hematocrit (blood only) 30.5 % (37-47); Hemoglobin 10.1 g/dL (12.0-16.0)
--- NOTE | 2019-02-18 07:54 | Obstetrical Progress Note ---
Date of Service <Narciso Martinez DO - Last Filed: 02/18/19 07:54> February 18, 2019 Assessment & Plan <Narciso Martinez DO - Last Filed: 02/18/19 07:54> (1) Twin : -POD#2 -Vitals reviewed, WNL (Tmax 36.7) - GBS -, Blood Type O- - Received Rhogram 12/09/18 and 02/17/19 - Clinically stable. - Feels well today. Voiding well, ambulating well. Eating well. - Pain well controlled. - Routine post care - After discharge will have [address] Pacheco Day #:: 2 Subjective <Narciso Martinez DO - Last Filed: 02/18/19 07:54> Ambulation: ambulating normally Voiding: no voiding problems Diet Tolerance:: regular diet Lochia:: Moderate Feeding Type:: breast feeding Current Pain Level(1-10): 3 (improves with analgesics) Patient is a 28 POD#2. Patient states that she is doing well this morning and that her pain is well controlled. She has no complaints at this point in time. States she would like to go home today if possible. Constitutional: no fever and no chills Respiratory: no cough, no dyspnea and no wheezing Cardiovascular: no chest pain, no dyspnea, no dyspnea on exertion, no edema and no calf pain Breast: no breast pain Gastrointestinal: no abdominal pain, no nausea and no vomiting Genitourinary (female): no dysuria Neurologic: no headache(s) Physical Exam <Narciso Watkinscristin DO Melissa Last Filed: 02/18/19 07:54> Constitutional WD/WN, vitals as above Respiratory normal respiratory effort, lungs clear to auscultation Cardiovascular Rate/Rhythm: regular rate and regular rhythm Heart Sounds: normal S1 and normal S2; no click, no gallop, no murmur and no cardiac rub Extremities: no calf tenderness and no edema Gastrointestinal (Abdomen) Inspection/Auscultation: abdomen normal to inspection, normal bowel sounds and + abdominal surgical incision (CDI) Percussion/Palpation: + abdomen tender (TTP lower quadrants, appropriate) and abdomen soft Genitourinary OB Exam Abdomen: + fundal height Fundus: + firm and + relation to umbilicus (1cm below); not tender and not boggy Results & Data <Narciso ArguellesDO milton - Last Filed: 02/18/19 07:54> Vital Signs (Past 12 Hours) Vital Signs Temp Pulse Pulse Resp BP Pulse Ox 02/18/19 07:25 36.4 C L 59 L 19 116/75 97 02/17/19 23:50 36.6 C 69 16 118/72 96 02/17/19 20:30 36.6 C 65 20 114/71 97 Laboratory Results Abnormal lab results 02/18/19 Range/Units 06:19 Hgb 10.1 L (12.0-16.0) g/dL Hct 30.5 L (37-47) % Medications Administered Current Inpatient Medications Benzocaine (Dermoplast Pain Relieving [place]) 1 appln EXT UD PRN PRN Reason: use on skin as needed Stop: 03/18/19 10:28 Bisacodyl (Dulcolax) 10 mg MD PRN PRN PRN Reason: Constipation Stop: 03/20/19 08:29 Cocaine HCl (Supercream 0.870%) 1 gm EXT UD PRN PRN Reason: hemmorrhoidal inflammation Stop: 03/02/19 10:28 Diphenhydramine HCl (Benadryl Capsule) 25 mg PO QID PRN PRN Reason: Itching Stop: 03/18/19 10:28 Diphenhydramine HCl (Benadryl) 25 mg IV QID PRN PRN Reason: Itching Stop: 03/19/19 01:30 Docusate Sodium (Colace) 100 mg PO DAILY@08, [facility] Stop: 03/18/19 20:59 Last Admin: 02/17/19 21:12 Dose: 100 mg Documented by: Docusate Sodium (Colace) 100 mg PO DAILY PRN PRN Reason: Constipation Stop: 03/18/19 10:28 Famotidine (Pepcid) 20 mg PO DAILY [facility] Stop: 03/18/19 10:28 Last Admin: 02/17/19 08:08 Dose: Not Given Documented by: Ferrous Sulfate (Feosol) 325 mg PO DAILY@08 [facility] Stop: 03/19/19 07:59 Last Admin: 02/17/19 08:07 Dose: 325 mg Documented by: Hydrocortisone (Anusol Hc) 25 mg MD BID PRN PRN Reason: Hemorrhoids Stop: 03/18/19 10:28 Lactated Ringer's (Lr) 1,000 mls @ 125 mls/hr IV .Q8H KIERAN Stop: 03/18/19 06:31 Lactated Ringer's (Lr) 1,000 mls @ 125 mls/hr IV .Q8H KIERAN Stop: 03/18/19 10:28 Promethazine HCl 25 mg/ Sodium (Chloride) 51 mls @ 204 mls/hr IV Q4H PRN PRN Reason: Nausea And Vomiting Stop: 03/19/19 01:30 Ibuprofen (Motrin) 600 mg PO Q4H PRN PRN Reason: Pain Stop: 03/19/19 01:30 Last Admin: 02/18/19 06:16 Dose: 600 mg Documented by: Ketorolac Tromethamine (Toradol) 30 mg IV Q6H PRN PRN Reason: Pain Stop: 02/22/19 01:30 Magnesium Hydroxide (Milk Of Magnesia) 30 ml PO HS PRN PRN Reason: Constipation Stop: 03/18/19 10:28 Meperidine HCl (Demerol) 50 - 75 mg IV Q4H PRN PRN Reason: Pain Stop: 03/03/19 01:30 Ondansetron HCl (Zofran) 4 mg IV Q4H PRN PRN Reason: Nausea And Vomiting Stop: 03/19/19 01:30 Oxycodone/Acetaminophen (Percocet 5mg/325mg) 1 - 2 tab PO Q4H PRN PRN Reason: Pain Stop: 03/03/19 01:30 Prenat Multivit/[place]/Iron/Folic Ac ( Vitamin) 1 tab PO DAILY@08 [facility] Stop: 03/19/19 07:59 Last Admin: 02/17/19 08:07 Dose: 1 tab Documented by: Sennosides (Senokot) 17.2 mg PO HS PRN PRN Reason: Constipation Stop: 03/18/19 10:28 Simethicone (Mylicon) 80 mg PO DAILY@08,13,17,21 [facility] Stop: 03/18/19 12:59 Last Admin: 02/17/19 21:12 Dose: 80 mg Documented by: Vitamin D (Vitamin D3) 1,000 units PO DAILY [facility] Stop: 03/19/19 08:59 Last Admin: 02/17/19 08:07 Dose: 1,000 units Documented by: <Domitila Johnson DO - Last Filed: 02/18/19 08:04> Co-Signing Physician Notes Resident Physician Supervision Note: I was present with Dr. Martinez during the history and exam. I discussed the case with the resident and agree with the findings and plan as documented in the note. Any exceptions or clarifications are listed here: POD#2 doing well after CS for twins. Would like to go home today. Discussed DC instructions, Rx sent to pharmacy by e-prescription. PAPDMP checked. Followup in office 6w. Documented By: Domitila Johnson DO Resident Activity Tracking <Narciso Martinez DO - Last Filed: 02/18/19 07:54> Resident Involvement: Resident Care Provided Care Provided: Adult Hospital Medicine
[2019-02-18] MEDS ORDERED: BISACODYL 10 MG SUPP PR PRN (08:30)
[2019-02-18] MEDS: SIMETHICONE 80 MG CHEW PO SCH (09:20)
[2019-02-18] MEDS: FERROUS SULFATE 325 MG TAB PO SCH (09:20)
[2019-02-18] MEDS: PRENATAL VITAMIN 1 TAB PO SCH (09:20)
[2019-02-18] MEDS: DOCUSATE SODIUM 100 MG CAP PO SCH (09:21)
--- NOTE | 2019-02-21 08:15 | Discharge Summary ---
Date of Service February 21, 2019 Admission Exam (Per Admitting) Constitutional WD/WN, vitals as above Respiratory normal respiratory effort, lungs clear to auscultation Cardiovascular RRR, no murmur, no edema Gastrointestinal (Abdomen) normal bowel sounds, soft, nontender, no hepatosplenomegaly Discharge Data Consultations 02/16/19 05:32 Consult Anesthesiology Stat Procedures Performed Operation Date: 02/16/19 07:30 Actual Procedures p Section in LD Live male child at 0758; live female child at 0800(Bilateral) - Akira Pacheco MD, [facility] [place] Hospital Course (1) Twin : Postoperative from section patient meets discharge criteria as she is ambulating well tolerating an oral diet has minimal bleeding and no extremity pain. Discharge instructions were reviewed and prescriptions were sent to her pharmacy of choice patient advised to call with any concerns and follow-up in the office discussed
== END 2019-02-18 13:10 | disposition home or self-care (01) | DRG 787 ==
LOC: 4S1 05:29 → EDSTATUS 07:30 → 4S2 11:10